=== PATIENT | male | born 1985 | race Caucasian/White ===

== ENCOUNTER 2020-10-08 12:09 | Emergency (ER) | payer MEDICAID ==
[~2020-10-08] VITALS: Ht 193 cm; Wt 146.0 kg
[2020-10-08] MEDS: KETOROLAC 60MG/2ML VIAL IM ONE (12:47)
[2020-10-08 13:28] VITALS: BP 168/88
== END 2020-10-08 13:29 | disposition home or self-care (01) ==
LOC: ER 12:09
DX: M1A.0710 Idiopathic chronic gout, right ankle and foot, without tophus (tophi) (principal); Z76.0 Encounter for issue of repeat prescription
CPT/HCPCS: 96372; 99283; J1885